=== PATIENT | female | born 1990 | race Caucasian/White ===

== ENCOUNTER 2018-02-27 09:46 | Emergency (ER) | payer MEDICAID ==
[2018-02-27 11:03] LABS: Bilirubin,Urine NEG (Negative); Blood,Urine NEG (Negative); Color,Urine Yellow (Yellow); Hyaline Casts,Urine 2 /LPF; Mucus,Urine 3+ /HPF; Protein,Urine <15 mg/dL mg/dL (Negative); Urobilinogen,Urine < 2.0 mg/dL (<2.0)
[2018-02-27 11:08] LABS: Basophils % (Auto) 0.4 % (0.0-1.8); Eosinophils % (Auto) 0.3 % (0.0-4.3); Hematocrit 41.9 % (30.3-42.9); Lymphocytes # (Auto) 1.5 K/mm3 (1.2-5.4); Lymphocytes % (Auto) 12.5 % (13.4-35.0); Mean Corpuscular HGB Conc 33 % (30-34); Mean Corpuscular Hemoglobin 31 pg (28-32); Mean Corpuscular Volume 92 fl (79-97); Monocytes # (Auto) 0.5 K/mm3 (0.0-0.8); Monocytes % (Auto) 4.4 % (0.0-7.3); Platelet Count 348 K/mm3 (140-440); Red Blood Count 4.57 M/mm3 (3.65-5.03)
[2018-02-27 11:18] LABS: Amphetamine Screen,Urine PRESUMPTIVE NEGATIVE; Benzodiazepines Screen,Urine PRESUMPTIVE NEGATIVE; Cannabinoid Screen,Urine PRESUMPTIVE NEGATIVE; Cocaine Screen,Urine PRESUMPTIVE NEGATIVE; Methadone Screen,Urine PRESUMPTIVE NEGATIVE; Opiate Screen,Urine PRESUMPTIVE NEGATIVE
[2018-02-27 11:24] LABS: BUN/Creatinine Ratio 10; Blood Urea Nitrogen 5 mg/dL (7-17); Calcium 9.6 mg/dL (8.4-10.2); Hemolysis Index 11
--- NOTE | 2018-02-27 11:51 | Emergency Department Report ---
ED Psych HPI - General Chief Complaint: Psych Stated Complaint: SUICIDAL Time Seen by Provider: 02/27/18 11:19 Source: patient Mode of arrival: Ambulatory - History of Present Illness Initial Comments: Study complaint: Suicidal ideation 27-year-old woman presents with history of chronic depression, chronic anxiety disorder, and recurrent thoughts of suicide, which have become more frequent recently as result of situational stressors, primarily concerned over her brother, who is currently involved in illegal difficulties as a result of possible murder of the person that he had an altercation with, and recent visit with daughter, who currently lives with daughter's father, with whom patient is not nor lives with. She reports that she felt like hurting herself, feelings of wanting to commit suicide last night, but mostly as a sense of desperation and denies having an active plan, did not report what method she had intended to use, and reports that she feels safe in the hospital facility, but that she does not feel safe or she to leave or to attempt to go home. Past medical history is quite vague, difficult to elicit, and patient is evasive about many questions, but her most significant stressor appears to been the sudden of her 1-year-old daughter almost one year ago, April, , which was reported to be SIDS, but cause was never fully identified. Since then she has been much more anxious, and generally more suspicious and more depressed. Further questioning it is more difficult, but ultimately give history of chronic depression, dating back to teenager, when she had some form of familial intervention, as result of her emotional stress and depression, for which she had outpatient group therapy for an unknown period of time, which helped her. She has never taken medication for depression, and there is no prior history of suicide attempt. Patient most recently had mental health evaluation in [place], approximately 6-12 months ago, when she lived in that [facility], but reports that she now lives in [facility], with a friend, and that she was here in the vicinity of [facility], to visit her daughter over the past few days. She denies any recent dispute or altercation with father or other family members, but that her brother was involved in an altercation, and the other person , and this has caused her great distress. She also has a heightened sense of alertness and suspicion, reporting that she is concerned that other people may be watching her, or following her activities, but gives no history of recent history of having been stopped, and no recent physical abuse. She denies altercation or threats by anyone. Past medical history is otherwise stable, she does not smoke, does not recreational drugs, does not take any medications routinely, and gives no significant medical history. She has no allergies. She reports no complaint or discomfort, but admits to significant anxiety, is tearful during interview, which is also significant for patient's poor responsiveness and evasive answers , which require him multiple questions to obtain even the basics of patient's recent history. Apparently she was filling out a police report today as a consequence of her possible involvement or recollection of the dispute and , and apparently made a comment to the police officers that she was feeling suicidal, and was strongly recommended to come for mental health evaluation, which is primary cause of her presenting today. Shortly after my interview, patient became significantly more wary, concerned about matter of collection of urinalysis, which I reported showed signs of urinary tract infection, requesting that if the IV involved, she was concerned about possibility of other people intervening in her affairs, and was resistant to return involuntarily to room, no longer cooperative, and given that patient had a knowledge expression suicidal behavior, not having felt safe on her own, I placed patient under 1013 confinement for evaluation by mental health for possible psychiatric admission. Complaint: suicidal ideation - Related Data Allergies Allergy/AdvReac Type Severity Reaction Status Date / Time No Known Allergies Allergy Unverified 02/27/18 10:18 ED Review of Systems ROS: Stated complaint: SUICIDAL Other details as noted in HPI Comment: All other systems reviewed and negative Constitutional: denies: chills, fever ENT: denies: ear pain, throat pain Respiratory: denies: cough, shortness of breath, wheezing Cardiovascular: denies: chest pain, palpitations Endocrine: no symptoms reported Gastrointestinal: denies: abdominal pain, nausea, diarrhea Genitourinary: as per HPI. denies: urgency, dysuria, frequency, hematuria Musculoskeletal: denies: back pain, joint swelling, arthralgia Skin: denies: rash Neurological: denies: headache, weakness, paresthesias, confusion, abnormal gait , vertigo Psychiatric: anxiety, depression, suicidal thoughts. denies: auditory hallucinations, visual hallucinations Hematological/Lymphatic: denies: easy bleeding, easy bruising ED Past Medical Hx - Past Medical History Previous Medical History?: No Hx Psychiatric Treatment: Yes (teenager, counseling/group therapy; no medications, no prior suicide attemp) - Surgical History Past Surgical History?: No - Social History Smoking Status: Never Smoker Substance Use Type: Alcohol ED Physical Exam - General Limitations: No Limitations General appearance: alert, anxious (often tearful) - Head Head exam: Present: atraumatic, normocephalic - Eye Eye exam: Present: PERRL, EOMI - ENT ENT exam: Present: normal exam, mucous membranes moist - Neck Neck exam: Present: normal inspection, full ROM. Absent: tenderness - Respiratory Respiratory exam: Present: normal lung sounds bilaterally. Absent: respiratory distress, wheezes, rales, rhonchi - Cardiovascular Cardiovascular Exam: Present: regular rate, normal rhythm, systolic murmur (1-2/ 6 mid systolic). Absent: diastolic murmur - GI/Abdominal GI/Abdominal exam: Present: soft, normal bowel sounds. Absent: tenderness, guarding, rebound - Rectal Rectal exam: Present: deferred - Extremities Exam Extremities exam: Present: normal inspection, full ROM - Neurological Exam Neurological exam: Present: alert, oriented X3, CN II-XII intact, normal gait, other (no ataxia, tremor). Absent: motor sensory deficit - Psychiatric Psychiatric exam: Present: anxious, suicidal ideation (by history, no active signs recent attempt). Absent: normal affect (evasive, later wary and uncooperative) - Skin Skin exam: Present: warm, dry. Absent: petechiae, pallor, ecchymosis ED Course Vital Signs 02/27/18 02/27/18 02/27/18 10:18 15:10 16:20 Temperature 37.3 C Pulse Rate 85 69 Respiratory 18 20 20 Rate Blood Pressure 126/84 Blood Pressure 122/46 [Left] O2 Sat by Pulse 97 100 Oximetry - Reevaluation(s) Reevaluation #1: 02/27/18 18:00 Patient rechecked, is resting fairly comfortably, remains alert, fairly well oriented, but still exhibits a significant amount of paranoid ideation, having the feeling that people are monitoring her constantly, generally by video, posterior them on YouTube, over multiple cities, and in different times and locations and situations. She denies any active hallucinations, either auditory or visual, is otherwise calm, shows no pressure speech, no flights of idea, and no other tangential thought. She does not feel actively suicidal at this time, but my impression is that patient still has a significant mental health arrangement, and now appears to have a primarily paranoid ideation, being suspicious, with underlying depression. ED Medical Decision Making - Lab Data Result diagrams: 02/27/18 10:42 02/27/18 10:42 - Medical Decision Making This patient gives an unusual history, with elements of significant acute distress, chronic depression with recent situational exacerbation, recent suicidal ideation but without plan, and a significant amount of paranoid ideation as well. By this, she is relatively comfortable, resting in her room, is not argumentative, and is not attempting to leave, and apparently understands that she has been held under 1013 confinement, but her demeanor is much calmer than earlier when she would not cooperate, prompting my initial involuntary confinement. Nonetheless, I still believe that mental health evaluation for possible inpatient psychiatric treatment is still warranted, and will await assessment of mental health counselor as well. Critical care attestation.: If time is entered above; I have spent that time in minutes in the direct care of this critically ill patient, excluding procedure time. ED Disposition Clinical Impression: Suicidal ideation, Paranoid ideation Depression Qualifiers: Major depression recurrence: recurrent Active/Remission status: currently active Major depression episode severity: severe Psychotic features: with psychotic features Disposition: OP ADMIT IP TO THIS HOSP Is pt being admited?: No Does the pt Need Aspirin: No Condition: Stable
[2018-02-27 22:23] VITALS: BP 108/70
== END 2018-02-27 23:30 | disposition admitted as inpatient to this hospital (09) ==
LOC: ED 09:46
DX: F32.9 Major depressive disorder, single episode, unspecified (principal); F41.9 Anxiety disorder, unspecified
CPT/HCPCS: 36415; 80048; 80307; 81001; 84703; 85025; 99285; G0480; 80320